=== PATIENT | female | born 1990 | race African-American/Black ===

== ENCOUNTER 2016-10-20 16:52 | Emergency (ER) | payer OTHER, MEDICAID ==
[~2016-10-20] VITALS: Ht 157.5 cm; Wt 100.0 kg
[~2016-10-20 16:52] MED LIST: PERC5TAB12 PO; Z.0.BCPILL PO
[2016-10-20 16:53] VITALS: BP 144/91; PULSE 97; RESP 17; TEMP 98.1; O2SAT 97
[2016-10-20] MEDS ORDERED: ACETAMINOPHEN 500 MG CPLT PO ONE (18:00)
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
[2016-10-20] MEDS ORDERED: IBUP-232 PO (19:06)
[2016-10-20] MEDS ORDERED: ACET325T PO (19:06)
[2016-10-20] MEDS ORDERED: ORPH100T99 PO (19:06)
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
== END 2016-10-20 20:05 | disposition home or self-care (01) ==
LOC: NEPB 16:52
DX: S16.1XXA Strain of muscle, fascia and tendon at neck level, initial encounter (principal); S60.212A Contusion of left wrist, initial encounter; Z72.0 Tobacco use; V89.2XXA Person injured in unspecified motor-vehicle accident, traffic, initial encounter; W22.10XA Striking against or struck by unspecified automobile airbag, initial encounter
CPT/HCPCS: 72125; 73110

== ENCOUNTER 2018-01-25 09:19 | Emergency (ER) | END 2018-01-25 11:45 | disposition home or self-care (01) | DX: S82.892A Other fracture of left lower leg, initial encounter for closed fracture (principal); W01.0XXA Fall on same level from slipping, tripping and stumbling without subsequent striking against object, initial encounter | CPT/HCPCS: 29515; 73610; 99283; E0113 ==